=== PATIENT | female | born 1975 | race Caucasian/White ===

== ENCOUNTER 2019-07-04 09:14 | Emergency (ER) | payer OTHER ==
[~2019-07-04] VITALS: Ht 160 cm; Wt 98.9 kg
[2019-07-04 09:14] VITALS: BP 130/76
[~2019-07-04 09:14] MED LIST: CLEOCIN HCL150 MG PO; IBUPROFEN200 M2 PO; LEVAQUIN 500 M500 M1 PO; NORCO 5-325 TA1 EACH PO; PENICILLIN V P500 MG PO; PERIDEX15 ML MM; PREDNISONE50 MG PO; VENTOLIN HFA 1818 GM INH
[2019-07-04] MEDS ORDERED: IBUPROFEN 600600 M1 PO (09:17)
[2019-07-04] MEDS ORDERED: KEFLEX500 M1 PO (10:15)
[2019-07-04] MEDS ORDERED: NAPROSYN500 MG PO (10:15)
== END 2019-07-04 10:01 | disposition home or self-care (01) ==
LOC: ER 09:14
DX: L03.116 Cellulitis of left lower limb (principal); F17.210 Nicotine dependence, cigarettes, uncomplicated; Z88.8 Allergy status to other drugs, medicaments and biological substances